=== PATIENT | male | born 1975 | race Caucasian/White ===

== ENCOUNTER 2016-07-04 06:40 | Emergency (ER) | payer OTHER ==
[~2016-07-04] VITALS: Ht 175.3 cm; Wt 88.5 kg
[2016-07-04 07:30] VITALS: BP 133/78
--- NOTE | 2016-07-04 07:48 | PHYS DOC ---
Past Medical History Past Medical History: Diabetes-Type I, Seizure Past Surgical History: Appendectomy Alcohol Use: None Drug Use: None Adult General Chief Complaint Chief Complaint: SEIZURE [facility] HPI Patient is a 41 year old female presents to the emergency department by way of EMS. Patient was on the bus when he had a seizure. Patient states at the current time that he takes Depakote 1500 mg every evening. He last seen his primary care physician who monitors his seizures in February. Patient states he cannot remember when the last seizure was. Patient is also diabetic and his glucose was 174 upon arrival. Patient is alert and oriented at the current time. He does state that he has discomfort in his left upper shoulder where he has a slight abrasion. Patient also has some lacerations noted on the tongue from biting it. Patient denies any other pain and discomfort at this time. Review of Systems Review of Systems Constitutional: Denies fever or chills [] Eyes: Denies change in visual acuity, redness, or eye pain [] HENT: Denies nasal congestion or sore throat [] Respiratory: Denies cough or shortness of breath [] Cardiovascular: No additional information not addressed in HPI [] GI: Denies abdominal pain, nausea, vomiting, bloody stools or diarrhea [] : Denies dysuria or hematuria [] Musculoskeletal: Denies back pain or joint pain [] Integument: Denies rash or skin lesions [] Neurologic: Denies headache, focal weakness or sensory changes. Hx of seizure Current Medications Current Medications Current Medications Medications (Trade) Dose Ordered Sig/Jaron Start Time Stop Time Status Last Admin Dose Admin Diphtheria/ Tetanus/Acell Pertussis (Boostrix) 0.5 ml ONCE ONCE 07/04/16 08:30 07/04/16 08:30 DC 07/04/16 08:13 0.5 ML Allergies Allergies Allergies Coded Allergies Type Severity Reaction Last Updated Verified No Known Drug Allergies 10/10/13 No Physical Exam Physical Exam Constitutional: Well developed, well nourished, no acute distress, non-toxic appearance. [] HENT: Normocephalic, atraumatic, bilateral external ears normal, oropharynx moist, no oral exudates, nose normal. Bilateral tympanic membranes normal. Patient's time appears to have multiple small lacerations that are not repairable. Eyes: PERRLA, EOMI, conjunctiva normal, no discharge. [] Neck: Normal range of motion, no tenderness, supple, no stridor. [] Cardiovascular:Heart rate regular rhythm, no murmur [] Lungs & Thorax: Bilateral breath sounds clear to auscultation [] Skin: Warm, dry, no erythema, no rash. [] Back: No tenderness Extremities: No tenderness, no cyanosis, no clubbing, ROM intact, no edema. Patient with redness noted to the left shoulder Neurologic: Alert and oriented X 3, normal motor function, normal sensory function, no focal deficits noted. Cranial nerves II through XII intact Psychologic: Affect normal, judgement normal, mood normal. [] Current Patient Data Vital Signs Vital Signs Date Time Temp Pulse Resp B/P Pulse Ox O2 Delivery O2 Flow Rate FiO2 07/04/16 07:30 102 18 133/78 93 Room Air 07/04/16 06:53 98.1 2 98.1 Lab Values Laboratory Tests Test 07/04/16 06:35 07/04/16 06:51 Valproic Acid Level 98mcg/mL (50-100) Valproic Acid Last Dose Date 07/03/16 Valproic Acid Last Dose Time 0800 Glucose (Fingerstick) 172mg/dL (70-99) H EKG EKG Heart rate 105 sinus tachycardia noted no ectopy noted no STEMI per Dr. Mayen [] Radiology/Procedures Radiology/Procedures [] Course & Med Decision Making Course & Med Decision Making Pertinent Labs and Imaging studies reviewed. (See chart for details) Patient's glucose was 70 to tip: Level was 98 which is therapeutic. Patient will be discharged home in stable condition signs and symptoms to return back to the emergency department. Patient was encouraged to continue his home medications. He was also recommended to follow-up with his neurologist or whomever is taking care of his seizures. Patient agrees with discharge instructions treatment regimens and follow-up recommendations. [] Dragon Disclaimer Dragon Disclaimer This electronic medical record was generated, in whole or in part, using a voice recognition dictation system. Departure Departure Impression: Primary Impression: Seizure Disposition: 01 HOME, SELF-CARE Condition: STABLE Referrals: [facility] (PCP) Patient Instructions: Seizure, Adult Additional Instructions: Home to rest Continue your home medications as prescribed Tylenol or Ibuprofen for headache Ice packs to areas of discomfort Followup with your neurologist or whomever takes care of your seizure medications in 3-5 days Return to emergency department as needed for signs and symptoms that become worse. REMBERTO WILSON SENIOR SOFTWARE ARCHITECT Jul 04, 2016 07:48
[2016-07-04] MEDS ORDERED: DIPHTH,PERTUSS(ACELL),TET TOX 0.5 ML DISP.SYRIN. VAX IM ONE (08:30)
--- NOTE | 2016-07-04 08:53 | EKG ---
[facility] [address] [place] [address] Test Date: 2016-07-04 Test Time: 06:53:44 Pat Name: NINA GORE Department: Room: Gender: M [employer]cal Accounting Clerk: ELVA EMT : 1975 Requested By: STAFF NON Order Number: [id number] Reading MD: Deanna Rodriguez Measurements Intervals [place] Rate: 105 P: 92 MO: 142 QRS: -20 QRSD: 112 T: -5 QT: 352 QTc: 469 Interpretive Statements SINUS TACHYCARDIA LEFTWARD AXIS OTHERWISE NORMAL EKG RI6.01 Unconfirmed report No previous ECG available for comparison Electronically Signed On 07-06-2016 17:17:27 CDT by Deanna Rodriguez
== END 2016-07-04 08:22 | disposition home or self-care (01) ==
LOC: ER 06:40
DX: R56.9 Unspecified convulsions (principal); L98.8 Other specified disorders of the skin and subcutaneous tissue; E10.9 Type 1 diabetes mellitus without complications
CPT/HCPCS: 36415; 80164; 82947; 90471; 90715; 93005; 99285-25